=== PATIENT | female | born 1935 | race Asian ===

== ENCOUNTER 2019-11-20 14:25 | Emergency (ER) | payer BC, MEDICAID ==
[~2019-11-20] VITALS: Ht 154.9 cm; Wt 70.3 kg
[2019-11-20] MEDS ORDERED: LIP10 PO (14:37)
[2019-11-20] MEDS ORDERED: ATEN50TA PO (14:37)
[2019-11-20] MEDS ORDERED: CLOP75TA32 PO (14:37)
[2019-11-20] MEDS ORDERED: VERA240C2 PO (14:37)
[2019-11-20 14:38] VITALS: BP_SYST 166
--- NOTE | 2019-11-20 14:41 | NUR ---
Patient to ER bed 2 to gown for evaluation. Side rails up.
--- NOTE | 2019-11-20 14:42 | NUR ---
PATIENT PRESENTS TO THE ER WITH HX OF SLIP AND FALL TO DAY WHILE USING WALKER ON A GRAVEL SURFACE; PATIENT FELL AND STRUCK RIGHT OCCIPITAL AREA; NO LOC, NO OTHER TRAUMA, NO OTHER REMARKABLE S/S
--- NOTE | 2019-11-20 15:20 | NUR ---
Patient in [facility], attempting to ambulate, daughter of patient at bedside for translation.
--- NOTE | 2019-11-20 15:21 | NUR ---
Re-oriented patient to stay in [facility] for ER treatment, patient agreeable.
--- NOTE | 2019-11-20 15:49 | NUR ---
ER Dr. Gtz at bedside examining patient.
--- NOTE | 2019-11-20 17:30 | NUR ---
ER Dr. Cooper at bedside ediscussing discharge with PT & daughter of patient.
[2019-11-20 17:35] VITALS: BP_SYST 159
--- NOTE | 2019-11-20 17:35 | NUR ---
Patient given written and verbal discharge instructions and verbalizes understanding. ER MD discussed with patient the results and treatment provided. Patient in stable condition. ID arm band removed. No Rx given. Patient educated on pain management and to follow up with PMD. Pain Scale 2/10 tolerable for patient. Opportunity for questions provided and answered.
== END 2019-11-20 17:35 | disposition home or self-care (01) ==
LOC: SED 14:25
DX: S09.90XA Unspecified injury of head, initial encounter (principal); I10 Essential (primary) hypertension; Z86.79 Personal history of other diseases of the circulatory system; Z79.899 Other long term (current) drug therapy; W18.39XA Other fall on same level, initial encounter; Y93.89 Activity, other specified; Y92.480 Sidewalk as the place of occurrence of the external cause; Y99.8 Other external cause status
CPT/HCPCS: 70450-TC; 99284

== ENCOUNTER 2020-02-09 12:56 | Emergency (ER) | payer BC, MEDICAID ==
[~2020-02-09] VITALS: Ht 160 cm; Wt 74.8 kg
[~2020-02-09 12:56] MED LIST: ATEN50TA PO; CLOP75TA32 PO; LIP10 PO; VERA240C2 PO
[2020-02-09 13:01] VITALS: BP_SYST 152
[2020-02-09] MEDS ORDERED: NACL 0.9% 1,000 ML IV ONE (13:10)
[2020-02-09 13:30] LABS: BASOPHILS # (AUTO) 0.1 K/uL (0.0-0.2); BASOPHILS % (AUTO) 1.1 % (0.0-2.0); EOSINOPHILS # (AUTO) 0.1 K/uL (0.0-0.4); EOSINOPHILS % (AUTO) 1.7 % (0.0-4.0); HEMATOCRIT 39.5 % (36-48); HEMOGLOBIN 13.1 g/dL (12.0-16.0); LYMPHOCYTES # (AUTO) 1.5 K/uL (1.0-5.5); MEAN CORPUSCULAR HEMOGLOBIN 30 pg (27-31); MEAN CORPUSCULAR HGB CONC 33 % (32-36); MEAN CORPUSCULAR VOLUME 90 fL (79.0-98.0); MONOCYTES # (AUTO) 0.5 K/uL (0.0-1.0); MONOCYTES % (AUTO) 7.2 % (1.7-9.3); NEUTROPHILS # (AUTO) 4.3 K/uL (1.8-7.7); PLATELET COUNT (AUTO) 287 K/uL (130-430); RED BLOOD CELL COUNT(AUTO) 4.39 MIL/uL (4.2-6.2); RED CELL DISTRIBUTION WIDTH 14.6 % (9.0-15.0); WHITE BLOOD COUNT (AUTO) 6.3 K/uL (4.8-10.8)
[2020-02-09 13:47] LABS: PROTHROMBIN TIME 10.4 SECS (9.5-12.5)
[2020-02-09 13:52] LABS: BILIRUBIN,URINE NEGATIVE (NEGATIVE); BLOOD, URINE NEGATIVE (NEGATIVE); CLARITY/URINE CLOUDY (CLEAR); COLOR,URINE YELLOW (YELLOW); GLUCOSE,URINE NEGATIVE (NEGATIVE); KETONES,URINE NEGATIVE (NEGATIVE); LEUKOCYTE ESTERASE ,URINE 2+ (NEGATIVE); NITRITE, URINE NEGATIVE (NEGATIVE); PH,URINE 6.5 (5.0-8.0); PROTEIN URINE NEGATIVE (NEGATIVE)
[2020-02-09 13:55] LABS: BACTERIA,URINE MANY /HPF (None Seen); RBC,URINE 0-3 /HPF (0-3)
[2020-02-09] MEDS ORDERED: cefTRIAXone 1 GM IVPB PREMIX 50 ML IV ONE (14:00)
[2020-02-09 14:02] LABS: BARBITURATE, URINE NEGATIVE (NEG <=200); BENZODIAZEPINE, URINE NEGATIVE (NEG <=150); CANNABINOID, URINE NEGATIVE (NEG <=50); COCAINE, URINE NEGATIVE (NEG <=150); METHAMPHETAMINES SCREEN,URINE NEGATIVE (NEG <=500); OPIATE, URINE NEGATIVE (NEG <=100); PHENCYCLIDINE SCREEN,URINE NEGATIVE (NEG <=25); UR TRICYCLIC ANTIDEPRESSANTS NEGATIVE (NEG <=300); URINE AMPHETAMINE NEGATIVE (NEG <=500); URINE METHADONE NEGATIVE (NEG <=200); URINE OXYCODONE SCREEN NEGATIVE (NEG <=100); URINE PROPOXYPHENE SCREEN NEGATIVE (NEG <=300)
[2020-02-09 14:04] LABS: CHLORIDE 104 mmol/L (98-107); POTASSIUM 4.4 mmol/L (3.5-5.1); SODIUM SERUM 138 mmol/L (136-145)
[2020-02-09 14:05] LABS: ALANINE AMINOTRANSFERASE 25 U/L (12-78); ALBUMIN 3.2 g/dL (3.4-4.8); AMYLASE 68 U/L (0-100); ANION GAP 6 (5-15); ASPARTATE AMINOTRANSFERASE 28 U/L (10-37); CALCIUM 8.7 mg/dL (8.4-11.0); CREATININE 0.73 mg/dL (0.55-1.30); GLUCOSE 119 mg/dL (70-99); LIPASE 138 U/L (73-393); TOTAL BILIRUBIN 0.9 mg/dL (0.0-1.0); UREA NITROGEN, BLOOD 8 mg/dL (8-21)
[2020-02-09 14:06] LABS: ACETAMINOPHEN < 1 ug/mL (1-30)
[2020-02-09 14:14] LABS: ALCOHOL, BLOOD < 3 mg/dL (<10)
[2020-02-09] MEDS ORDERED: HYDR-4037 PO (14:45)
[2020-02-09 16:22] VITALS: BP_SYST 142
== END 2020-02-09 16:22 | disposition short-term general hospital (02) ==
LOC: SED 12:56
DX: F03.90 Unspecified dementia, unspecified severity, without behavioral disturbance, psychotic disturbance, mood disturbance, and anxiety (principal); R53.1 Weakness; N39.0 Urinary tract infection, site not specified; I62.01 Nontraumatic acute subdural hemorrhage; I10 Essential (primary) hypertension; Z79.899 Other long term (current) drug therapy
CPT/HCPCS: 36415; 70450; 71045; 80053; 80307; 81000; 82150; 82550; 83605; 83690; 83880; 84484; 85025; 85610; 85730; 86710; 87040; 87086; 96365; 99285; G0480; G0481; G0482; J0696; J7030

== ENCOUNTER 2020-07-05 17:19 | Inpatient (IN) | payer BC, MEDICAID, SELFPAY ==
[~2020-07-05] VITALS: Ht 162.6 cm; Wt 56.7 kg
[~2020-07-05 17:19] MED LIST changes: +HYDR-4037 PO
[2020-07-05 17:30] VITALS: BP_SYST 134
--- NOTE | 2020-07-05 17:30 | NUR ---
BIB EMT FROM HOME FOR ALOC, HX OF CVA. RESTLESS, UNABLE TO FOLLOW CAMMANDS.
[2020-07-05 18:17] LABS: BASOPHILS # (AUTO) 0.1 K/uL (0.0-0.2); BASOPHILS % (AUTO) 0.8 % (0.0-2.0); EOSINOPHILS % (AUTO) 0.1 % (0.0-4.0); HEMATOCRIT 37.4 % (36-48); HEMOGLOBIN 12.9 g/dL (12.0-16.0); LYMPHOCYTES # (AUTO) 1.2 K/uL (1.0-5.5); LYMPHOCYTES % (AUTO) 11.1 % (20.5-51.5); MEAN CORPUSCULAR HEMOGLOBIN 31 pg (27-31); MEAN CORPUSCULAR HGB CONC 34 % (32-36); MEAN CORPUSCULAR VOLUME 90 fL (79.0-98.0); MONOCYTES # (AUTO) 0.8 K/uL (0.0-1.0); MONOCYTES % (AUTO) 7.5 % (1.7-9.3); NEUTROPHILS # (AUTO) 8.7 K/uL (1.8-7.7); NEUTROPHILS % (AUTO) 80.5 % (40.0-70.0); PLATELET COUNT (AUTO) 184 K/uL (130-430); RED BLOOD CELL COUNT(AUTO) 4.19 MIL/uL (4.2-6.2); RED CELL DISTRIBUTION WIDTH 13.7 % (9.0-15.0); WHITE BLOOD COUNT (AUTO) 10.8 K/uL (4.8-10.8)
[2020-07-05] MEDS ORDERED: DIPHENHYDRAMINE INJ 50 MG/ML VIAL IVP ONE (18:30)
[2020-07-05] MEDS ORDERED: LORazepam 2 MG/ML VIAL IVP ONE (18:30)
--- NOTE | 2020-07-05 19:01 | NUR ---
RESTLESS, MEDICATED FOR CT HEAD
[2020-07-05 19:06] LABS: PROTHROMBIN TIME 10.4 SECS (9.5-12.5)
[2020-07-05 19:07] LABS: CHLORIDE 101 mmol/L (98-107); SODIUM SERUM 138 mmol/L (136-145)
[2020-07-05 19:08] LABS: ANION GAP 11 (5-15); CALCIUM 8.5 mg/dL (8.4-11.0); CREATININE 0.77 mg/dL (0.55-1.30); GLUCOSE 128 mg/dL (70-99); UREA NITROGEN, BLOOD 12 mg/dL (8-21)
[2020-07-05 19:09] LABS: ALANINE AMINOTRANSFERASE 19 U/L (12-78); ALBUMIN 3.3 g/dL (3.4-4.8); ASPARTATE AMINOTRANSFERASE 19 U/L (10-37); TOTAL BILIRUBIN 0.7 mg/dL (0.0-1.0)
[2020-07-05 19:15] LABS: POTASSIUM 2.9 mmol/L (3.5-5.1)
[2020-07-05 19:29] LABS: BILIRUBIN,URINE NEGATIVE (NEGATIVE); BLOOD, URINE 1+ (NEGATIVE); CLARITY/URINE SL CLOUDY (CLEAR); COLOR,URINE YELLOW (YELLOW); GLUCOSE,URINE NEGATIVE (NEGATIVE); KETONES,URINE NEGATIVE (NEGATIVE); LEUKOCYTE ESTERASE ,URINE 1+ (NEGATIVE); NITRITE, URINE POSITIVE (NEGATIVE); PROTEIN URINE 1+ (NEGATIVE)
[2020-07-05 19:45] LABS: BACTERIA,URINE MANY /HPF (None Seen)
[2020-07-05] MEDS ORDERED: POTASSIUM CHLORIDE 30 MEQ in NACL 0.9% 1,000 ML IV SCH (20:00)
--- NOTE | 2020-07-05 20:20 | NUR ---
REPEAT LACTATE. TOLERATED, WELL, ABX INFUSION STARTED
[2020-07-05] MEDS ORDERED: cefTRIAXone 2 GM VIAL ONE (20:26)
[2020-07-05] MEDS ORDERED: POTASSIUM CHLORIDE 20 MEQ TAB.PRT.SR PO ONE (20:30)
[2020-07-05] MEDS ORDERED: KCL 20 mEq in NS 1000 mL 1,000 ML IV ONE ×2 (20:30→22:09)
--- NOTE | 2020-07-05 22:15 | NUR ---
ADMIT ORDERS RECEIVED FOR TELE UNDER TIO
[2020-07-05] MEDS ORDERED: MECL-97 PO (22:30)
[2020-07-05] MEDS ORDERED: LEVE100S PO (22:32)
--- NOTE | 2020-07-05 22:33 | NUR ---
Medication reconciliation completed with information provided by family/list. Any prior medication reconciliation on file was reviewed and corrected.
[2020-07-05] MEDS ORDERED: KCL 20 mEq in 100 mL (PREMIX) 100 ML IV ONE (22:45)
--- NOTE | 2020-07-05 23:04 | NUR ---
NO CHANGE IN MENTATION, PT CALM, RESP UNLABORED, SKIN WARM AND DRY
--- NOTE | 2020-07-05 23:17 | NUR ---
Patient will be admitted to care of [facility]. Admitted toTELE unit. Will go to room 129. Belongings list completed. Complete and up to date summary report printed. SBAR report to be given at bedside with opportunity for questions.
[2020-07-05 23:20] VITALS: BP_SYST 136
--- NOTE | 2020-07-05 23:20 | NUR ---
ADMISSION NOTE Received patient from ER via gurney. Patient admitted with diagnosis of UROSEPSIS, ALOC, ENCEPHALOPATHY. Patient is awake, alert, oriented X 0. Patient oriented to hospital room, call light, toileting, pain management and safety-teach back done. Patient informed that CINTHIA will be HER nurse and that their room number is 124B. Personal belongings checked and Belongings List documented. Call light within reach.
--- NOTE | 2020-07-05 23:52 | NUR ---
COMMUNICATION W/ DR. TIO KINSEY HAS PAGED BACK AT THIS TIME, HE HAS GIVEN NEW ORDERS FOR PATIENT. ORDERS READ BACK, VERIFIED, AND COMMUNICATED TO PATIENT'S PRIMARY RN.
--- NOTE | 2020-07-05 23:53 | NUR ---
HIGH ALERT NOTE: HIGH ALERT MEDICATION: ATIVAN ORDERED BY DR. KINSEY OVER TELEPHONE. Called Dr. KINSEY back at , identified within the medical roster to verify physician authenticity.
[2020-07-05] MEDS: NACL 0.9% 1,000 ML IV SCH (23:55)
--- NOTE | 2020-07-05 23:55 | NUR ---
IVF PATIENT STARTED ON IVF NS @ 75 ML/HR ORDERED. IV LINE INTACT AND PATENT. PATIENT RESTING IN BED. BREATHING UNLABORED ON ROOM AIR. SAFETY PRECAUTIONS IN PLACED.
[2020-07-06] MEDS ORDERED: LORazepam 2 MG/ML VIAL IVP PRN
--- NOTE | 2020-07-06 02:21 | NUR ---
ROUNDS BREATHING UNLABORED ON ROOM AIR. 02SAT 98-99%. IVF INFUSING. BED ALARM ON.
[2020-07-06 04:51] VITALS: BP_SYST 141
--- NOTE | 2020-07-06 05:00 | NUR ---
AM CARE INCONTINENCE CARE DONE. HAD SMALL FORMED BOWEL MOVEMENT. Z GUARD APPLIED TO SACRAL AND BUTTOCKS REDNESS. VITAL SIGNS STABLE.
--- NOTE | 2020-07-06 06:31 | NUR ---
CLOSING NOTES PATIENT REMAINS LETHARGIC. NO SOB ON ROOM AIR. 02 SAT 96%. IVF INFUSING WITH IV LINE INTACT AND PATENT. PATIENT NEEDS ATTENDED. BED IN LOWEST LOCKED POSITION WITH BED ALARM ON.
[2020-07-06] MEDS ORDERED: FLU VACC QS2020-21(65UP)/PF 0.7 ML/SYRINGE I.M. PRN (07:00)
--- NOTE | 2020-07-06 07:27 | NUR ---
Nutrition Update Jairo Scale 13 noted. Pt admitted for Urosepsis, ALOC, Encephalopathy Diet: NPO BMI: 21.5 kg/m2 RD to follow per nutrition care standards.
[2020-07-06 07:44] LABS: ANION GAP 4 (5-15); CALCIUM 7.9 mg/dL (8.4-11.0); CHLORIDE 104 mmol/L (98-107); CREATININE 0.68 mg/dL (0.55-1.30); GLUCOSE 101 mg/dL (70-99); SODIUM SERUM 136 mmol/L (136-145); UREA NITROGEN, BLOOD 9 mg/dL (8-21)
[2020-07-06 07:47] LABS: BASOPHILS # (AUTO) 0.1 K/uL (0.0-0.2); BASOPHILS % (AUTO) 0.8 % (0.0-2.0); EOSINOPHILS % (AUTO) 0.2 % (0.0-4.0); HEMATOCRIT 34.8 % (36-48); HEMOGLOBIN 11.7 g/dL (12.0-16.0); LYMPHOCYTES % (AUTO) 11.6 % (20.5-51.5); MEAN CORPUSCULAR HEMOGLOBIN 30 pg (27-31); MEAN CORPUSCULAR HGB CONC 34 % (32-36); MEAN CORPUSCULAR VOLUME 90 fL (79.0-98.0); MONOCYTES # (AUTO) 0.8 K/uL (0.0-1.0); MONOCYTES % (AUTO) 9.1 % (1.7-9.3); NEUTROPHILS # (AUTO) 6.7 K/uL (1.8-7.7); NEUTROPHILS % (AUTO) 78.3 % (40.0-70.0); PLATELET COUNT (AUTO) 163 K/uL (130-430); RED BLOOD CELL COUNT(AUTO) 3.88 MIL/uL (4.2-6.2); RED CELL DISTRIBUTION WIDTH 13.9 % (9.0-15.0); WHITE BLOOD COUNT (AUTO) 8.6 K/uL (4.8-10.8)
[2020-07-06 07:55] VITALS: BP_SYST 153
[2020-07-06 07:59] LABS: ALANINE AMINOTRANSFERASE 17 U/L (12-78); ALBUMIN 2.7 g/dL (3.4-4.8); ASPARTATE AMINOTRANSFERASE 12 U/L (10-37); CHOLESTEROL 105 mg/dL (<200); HDL CHOLESTEROL 53 mg/dL (>55); LDL CHOLESTEROL 46 mg/dL (<100); THYROID STIMULATING HORMONE 0.31 uIu/mL (0.34-4.82); TOTAL BILIRUBIN 0.6 mg/dL (0.0-1.0); TRIGLYCERIDES 49 mg/dL (30-150)
--- NOTE | 2020-07-06 08:00 | NUR ---
Note Pt resting and arousable with light stimuli at this time. Pt has no SOB/resp distress or pain/discomfort noted a this time. Pt is on room air with O2 sats at 96%. Tele unit attached and intact. IV in right wrist intact and potent infusing IVF's well. No needs noted at this time. Pt is NPO - swallow eval to be done this shift. Bed in low position and bed alarm on.
[2020-07-06 09:05] LABS: POTASSIUM 2.8 mmol/L (3.5-5.1)
[2020-07-06] MEDS ORDERED: POTASSIUM CHLORIDE 40 MEQ in NS 250 ML IV ONE (09:30)
--- NOTE | 2020-07-06 10:15 | NUR ---
Note Pt resting, no needs noted at this time. Dr Bertrand was called for K=2.8, order for K-rider 40meq received at this time. Potassium IVPB was started and running well at this time. Call light within reach. Miranda catheter intact and draining all shift. Pt also non-verbal all shift.
[2020-07-06] MEDS: NACL 0.9% 1,000 ML IV SCH ×2 (12:13→21:39)
[2020-07-06 12:35] VITALS: BP_SYST 150
--- NOTE | 2020-07-06 14:00 | NUR ---
NOTE Dr Bertrand on the floor to assess pt and write orders. Jessica (speech therapist) at bedside at this time doing swallow eval. Pt resting in bed with IVF's infusing well. Call light within reach.
--- NOTE | 2020-07-06 14:18 | NUR ---
LATE ENTRY SPEECH THERAPIST MATTI WAS CONSULT FOR A SWALLOWING EVAL. CALLED MATTI DIRECTLY.
--- NOTE | 2020-07-06 14:23 | NUR ---
S.T. SWALLOW EVAL SWALLOW EVAL COMPLETED. PT PRESENTS W/ GENERALLY FUNCTIONAL OROPHARYNGEAL SWALLOW FOR PUREE AND THIN/THICK LIQUIDS W/ NO S/S OF ASPIRATION. REC: PUREE DIET. THIN LIQUIDS OK. NURSE FAMILIA NOTIFIED.
--- NOTE | 2020-07-06 14:25 | NUR ---
Note Pt's daughter Ekta [phone] called for update on pt's status. Questions/concerns were answered at this time.
[2020-07-06] MEDS ORDERED: hydrALAZINE HCL 10 MG TABLET PO PRN (14:45)
--- NOTE | 2020-07-06 15:35 | NUR ---
CONSULTATION PAGED/CALLED Reason for Consultation: [] CARDIAC EVAL Person Who was Notified: [] JATINDER Consulting Physician: [] DR SERRATO Movie Shot Cameraman Specialty: [] CARDIO Ordering Physician: [] DR KINSEY
[2020-07-06 16:52] VITALS: BP_SYST 107
--- NOTE | 2020-07-06 17:25 | NUR ---
Note Dr Edwards called for update on pt's status and labs/tests done.
--- NOTE | 2020-07-06 18:30 | NUR ---
Note Dr Edwards at pt's bedside assessing pt at 1800. Pt was assisted in sitting up in bed and fed her dinner (Pureed). Pt tolerated diet well, no choking.difficulty swallowing or coughing noted. Pt has no SOB/resp distress or pain/discomfort at this time. Tele unit attached and intact all shift. IV in right wrist intact and patent infusing IVF's well. Miranda catheter intact and draining. Pt was checked on q1' and PRN all shift for needs and care. Pt's bed in low position and bed alarm on all shift. Pt was maintained with safety and isolation precautions all shift. No needs noted at this time. Call light within reach.
[2020-07-06 18:31] LABS: ANION GAP 8 (5-15); CALCIUM 8.2 mg/dL (8.4-11.0); CHLORIDE 105 mmol/L (98-107); CREATININE 0.75 mg/dL (0.55-1.30); GLUCOSE 109 mg/dL (70-99); SODIUM SERUM 141 mmol/L (136-145); UREA NITROGEN, BLOOD 9 mg/dL (8-21)
[2020-07-06 18:40] LABS: POTASSIUM 2.9 mmol/L (3.5-5.1)
[2020-07-06 20:00] VITALS: BP_SYST 137
[2020-07-06] MEDS ORDERED: POTASSIUM CHLORIDE 50 MEQ in NS 250 ML IV ONE (20:00)
--- NOTE | 2020-07-06 20:00 | NUR ---
AWAKE, ALERT. PT FOUND PARTIALLY DISROBED, PIV DISLODGED AND INCONTINENT OF STOOL. 1 LARGE FORMED BROWN STOOL DEFECATED. STOOL RUBBED ON SIDERAILS AND IN FINGERS/NAILS. CLEANED. GOWN CHANGED. PARTIAL LINEN CHANGE DONE. CONFUSED. REORIENTED TO TIME, PLACE AND CIRCUMSTANCE. PIV #22 RESTARTED IN LEFT UPPER ARM AFTER 3 ATTEMPTS.
[2020-07-06] MEDS: cefTRIAXone 1 GM in D5W 50 ML IV SCH (21:37)
[2020-07-06] MEDS: ATENOLOL 50 MG TABLET (TENORMIN) PO SCH (21:38)
[2020-07-06] MEDS: LevETIRAcetam 500 MG/5 ML UDC ORAL LIQUID PO SCH (21:38)
--- NOTE | 2020-07-06 22:00 | NUR ---
DISROBES. NEEDS FREQUENT REMINDER AND INTERVENTIONS. FORGETFUL/CONFUSED. REPOSITIONED. FLU VACCINE GIVEN.
[2020-07-07] VITALS: BP_SYST 125
--- NOTE | 2020-07-07 | NUR ---
ASLEEP. NO DISTRESS NOTED. VSS.
--- NOTE | 2020-07-07 04:00 | NUR ---
1 MODERATE FORMED BROWN STOOL DEFECATED. DUG INTO STOOL WITH FINGERS, WIPED ONTO SIDE RAILS. CLEANED. SIDE RAILS CLEANED. FINGERNAILS CLEANED. SOBIA CARE GIVEN. SKIN CARE, CHAN CARE, BACK CARE SOBIA-CARE DONE. PARTIAL LINEN CHANGED AND SCD'S CHANGED. DOES NOT ASSIST WITH TURNING. ANGELIQUE PROC WELL.
--- NOTE | 2020-07-07 06:00 | NUR ---
SOUNDLY ASLEEP. REPOSITIONED. UO GOOD. CHAN SECUREMENT DEVICE CHANGED EARLIER. REMAINS IN GUARDED CONDITION.
[2020-07-07 07:07] LABS: BASOPHILS # (AUTO) 0.1 K/uL (0.0-0.2); EOSINOPHILS # (AUTO) 0.1 K/uL (0.0-0.4); EOSINOPHILS % (AUTO) 0.7 % (0.0-4.0); HEMATOCRIT 34.1 % (36-48); HEMOGLOBIN 11.5 g/dL (12.0-16.0); LYMPHOCYTES # (AUTO) 1.2 K/uL (1.0-5.5); LYMPHOCYTES % (AUTO) 15.4 % (20.5-51.5); MEAN CORPUSCULAR HEMOGLOBIN 30 pg (27-31); MEAN CORPUSCULAR HGB CONC 34 % (32-36); MEAN CORPUSCULAR VOLUME 90 fL (79.0-98.0); MONOCYTES # (AUTO) 0.8 K/uL (0.0-1.0); MONOCYTES % (AUTO) 10.7 % (1.7-9.3); NEUTROPHILS # (AUTO) 5.5 K/uL (1.8-7.7); NEUTROPHILS % (AUTO) 72.2 % (40.0-70.0); PLATELET COUNT (AUTO) 154 K/uL (130-430); RED BLOOD CELL COUNT(AUTO) 3.81 MIL/uL (4.2-6.2); RED CELL DISTRIBUTION WIDTH 13.9 % (9.0-15.0); WHITE BLOOD COUNT (AUTO) 7.6 K/uL (4.8-10.8)
[2020-07-07 07:17] LABS: ALANINE AMINOTRANSFERASE 18 U/L (12-78); ALBUMIN 2.7 g/dL (3.4-4.8); ANION GAP 7 (5-15); ASPARTATE AMINOTRANSFERASE 19 U/L (10-37); CALCIUM 8.1 mg/dL (8.4-11.0); CHLORIDE 110 mmol/L (98-107); GLUCOSE 90 mg/dL (70-99); POTASSIUM 3.7 mmol/L (3.5-5.1); SODIUM SERUM 144 mmol/L (136-145); TOTAL BILIRUBIN 0.5 mg/dL (0.0-1.0); UREA NITROGEN, BLOOD 13 mg/dL (8-21)
[2020-07-07 08:00] VITALS: BP_SYST 153
--- NOTE | 2020-07-07 08:00 | NUR ---
Note Pt was assisted in sitting up in bed to eat her breakfast. No SOB/resp distress or pain/discomfort noted at this time. Pt has Miranda catheter intact and draining. Tele unit attached and intact at this time. IV in JORDAN intact and patent infusing IVF's well. No needs noted at this time. Call light within reach.
[2020-07-07] MEDS: MECLIZINE HCL 25 MG TABLET (ANITVERT) PO SCH (09:27)
[2020-07-07] MEDS: ATORVASTATIN 10 MG TABLET PO SCH (09:27)
[2020-07-07] MEDS: CLOPIDOGREL BISULFATE 75 MG TABLET PO SCH (09:28)
[2020-07-07] MEDS: ATENOLOL 50 MG TABLET (TENORMIN) PO SCH ×2 (09:28→21:59)
[2020-07-07] MEDS: LevETIRAcetam 500 MG/5 ML UDC ORAL LIQUID PO SCH ×2 (09:30→21:00)
--- NOTE | 2020-07-07 10:50 | NUR ---
Note Pt pulled out her IV, tele unit and arm band. Pt was cleaned and given hygiene care. IV was inserted in left forearm and wrapped with Kerlix wrap. Order for restraints was received from Dr Bertrand. Pt's daughter Ekta was called and notified of restraints.- jaleel.
[2020-07-07 12:00] VITALS: BP_SYST 135
[2020-07-07] MEDS: NACL 0.9% 1,000 ML IV SCH (12:24)
--- NOTE | 2020-07-07 13:27 | NUR ---
Dietitian Recommendations *Continue pureed diet per CANE LOADER rec. ONS Ensure Enlive TID comes standard w/ the diet and provides additional 1050 kcal and 60gm protein daily. Please see Nutritional Assessment for details. CHIARA, RD
--- NOTE | 2020-07-07 13:50 | NUR ---
Note Pt resting in bed with mittens on bilaterally. No needs noted at this time. Call light within reach.
[2020-07-07 16:00] VITALS: BP_SYST 129
--- NOTE | 2020-07-07 18:35 | NUR ---
Note Pt was fed her dinner, appetite was good. Pt denies any SOB/resp distress or pain/discomfort noted a this time. Tele unit attached and intact. Miranda catheter intact and draining. IV in left forearm intact and patent infusing IVF's well. Pt was checked on q1' and PRN all shift for needs and care. Pt was maintained with safety and isolation precautions all shift. Pt has bilateral mittens on at this time. No needs noted at this time. Call light within reach. Pt's daughter Ekta called at this time and update was given om pt's status.
[2020-07-07 20:00] VITALS: BP_SYST 161
--- NOTE | 2020-07-07 20:00 | NUR ---
AWAKE, ALERT. CONFUSED. WAS ABLE TO TAKE OFF MITTENS. PULLED OFF EKG PATCHES. 1 SMALL FORMED BROWN STOOL DEFECATED. CLEANED. SOBIA CARE DONE. REPOSITIONED.
[2020-07-07] MEDS: cefTRIAXone 1 GM in D5W 50 ML IV SCH (21:58)
--- NOTE | 2020-07-07 22:00 | NUR ---
STILL CONFUSED. PULLS OFF EKG PATCHES IN SPITE OF MITTENS AND INSTRUCTIONS.
--- NOTE | 2020-07-08 | NUR ---
SOUNDLY ASLEEP. NO DISTRESS NOTED.
--- NOTE | 2020-07-08 02:00 | NUR ---
DOZES ON AND OFF. TURNED AND REPOSITIONED.
--- NOTE | 2020-07-08 05:00 | NUR ---
1 SMEAR OF STOOL DEFEATED. CLEANED. SOBIA-CARE DONE. CHAN CARE, BACK CARE, Z-GUARD APPLIED TO PERINEUM, SKIN CARE DONE. PARTIAL LINEN CHANGE RENDERED. DOES NOT ASSIST WITH TURNING. ANGELIQUE PROC WELL.
[2020-07-08] MEDS: NACL 0.9% 1,000 ML IV SCH (05:05)
--- NOTE | 2020-07-08 06:00 | NUR ---
SLEPT INTERMITTENTLY. UO GOOD. REMAINS ON GUARDED CONDITION.
[2020-07-08 07:25] LABS: BASOPHILS % (AUTO) 0.6 % (0.0-2.0); EOSINOPHILS # (AUTO) 0.1 K/uL (0.0-0.4); EOSINOPHILS % (AUTO) 2.3 % (0.0-4.0); HEMATOCRIT 35.9 % (36-48); HEMOGLOBIN 12.1 g/dL (12.0-16.0); LYMPHOCYTES # (AUTO) 1.2 K/uL (1.0-5.5); LYMPHOCYTES % (AUTO) 18.8 % (20.5-51.5); MEAN CORPUSCULAR HEMOGLOBIN 30 pg (27-31); MEAN CORPUSCULAR HGB CONC 34 % (32-36); MEAN CORPUSCULAR VOLUME 90 fL (79.0-98.0); MONOCYTES # (AUTO) 0.7 K/uL (0.0-1.0); MONOCYTES % (AUTO) 10.5 % (1.7-9.3); NEUTROPHILS # (AUTO) 4.4 K/uL (1.8-7.7); NEUTROPHILS % (AUTO) 67.8 % (40.0-70.0); PLATELET COUNT (AUTO) 167 K/uL (130-430); RED CELL DISTRIBUTION WIDTH 13.7 % (9.0-15.0); WHITE BLOOD COUNT (AUTO) 6.4 K/uL (4.8-10.8)
--- NOTE | 2020-07-08 08:25 | NUR ---
AM ROUNDS: PATIENT AWAKE,ALERT AND ORIENTED X2.CONTACT AIRBORNE AND DROPLET PRECAUTION RENDERED. WITH BILATERAL MITTENS ON.CALL LIGHT WITH IN REACH. BED LOCKED AT LOWEST POSITION.IV SALINE LOCK AT LEFT FOREARM INTACT. NO DISTRESS.
[2020-07-08 09:00] VITALS: BP_SYST 146
[2020-07-08] MEDS: MECLIZINE HCL 25 MG TABLET (ANITVERT) PO SCH (10:04)
[2020-07-08] MEDS: CLOPIDOGREL BISULFATE 75 MG TABLET PO SCH (10:04)
[2020-07-08] MEDS: LevETIRAcetam 500 MG/5 ML UDC ORAL LIQUID PO SCH ×2 (10:04→20:12)
[2020-07-08] MEDS: ATORVASTATIN 10 MG TABLET PO SCH (10:04)
[2020-07-08] MEDS: ATENOLOL 50 MG TABLET (TENORMIN) PO SCH ×2 (10:05→20:12)
--- NOTE | 2020-07-08 12:30 | NUR ---
lunch: fed patient and tolerated the puree diet. No problem.
[2020-07-08 13:00] VITALS: BP_SYST 143
[2020-07-08] MEDS ORDERED: FLU VACC QS2020-21 (6 mos & up) 0.5 ML/SYRINGE I.M. PRN (14:30)
--- NOTE | 2020-07-08 14:30 | NUR ---
RN ROUNDS: PATIENT ON SIDE LYING,SLEEPING. NO DISTRESS.
--- NOTE | 2020-07-08 17:05 | NUR ---
Med Group: Spoke with Jet after 5pm.Patient accepted to [facility] room #607-B.Report #[phone] [id number]. [facility] [phone]. Addendum: 07/08/20 at 195 by Carolina Larson RN added notes: On will call. Pls see above [facility] phone number.
[2020-07-08 18:15] VITALS: BP_SYST 163
--- NOTE | 2020-07-08 18:15 | NUR ---
bp: elevated bp,apresoline 10mg po given for sbp>150.
--- NOTE | 2020-07-08 18:35 | NUR ---
Called POA: Spoke to Ekta Alba,(POA) chika,direct care specialist of patient ,informed her patient had a room at [facility],On will call depending on BP prior to dc.Bp meds given and stable.Will endorsed to night nurse Carla that Ekta needs to be informed for any future snf transfer and to call for ambulance and report.
--- NOTE | 2020-07-08 19:00 | NUR ---
recheck bp: Px=450/78.
[2020-07-08 19:01] VITALS: BP_SYST 149
--- NOTE | 2020-07-08 19:25 | NUR ---
closing notes: Endorsed to night nurse Carla,patient in stable condition.
--- NOTE | 2020-07-08 19:40 | NUR ---
ROUNDS PATIENT RESTING COMFORTABLY IN BED, CONFUSED, NOT IN DISTRESS, VITALS STABLE. NO SIGNS OF ANY PAIN AND DISCOMFORT NOTED. ASSESSMENT DONE AND DOCUMENTED. SEE FLOWSHEET. NEEDS ATTENDED TO. SAFETY MEASURES IN PLACED. BED IN LOW AND LOCKED POSITION. WILL CONTINUE TO MONITOR.
[2020-07-08 20:00] VITALS: BP_SYST 130
[2020-07-08] MEDS: cefTRIAXone 1 GM in D5W 50 ML IV SCH (20:12)
--- NOTE | 2020-07-08 20:35 | NUR ---
NOTES CALLED [facility] AND GIVE REPORT TO BRENNON RN, PATIENT GOING TO ROOM 607-B.
[2020-07-08 20:45] VITALS: BP_SYST 130
--- NOTE | 2020-07-08 20:46 | NUR ---
Called [facility] dialed [phone], s/w Nikky. ETA [id number]
--- NOTE | 2020-07-08 22:25 | NUR ---
CLOSING NOTES PATIENT TRANSFERRED TO [facility] ORDERED VIA AMBULANCE WITH STABLE VITAL SIGNS . DISCHARGE PACKET DONE AND BELONGINGS CHECKED. ALL NEEDS ATTENDED TO. PATIENT'S DAUGHTER AYLEEN INFORMED OF PATIENT'S TRANSFER.
== END 2020-07-08 22:25 | disposition short-term general hospital (02) | DRG 871 ==
LOC: SED 17:19 → STU 22:51
PROVIDERS: ADMIT Internal Medicine; ATTEND Internal Medicine
DX: A41.9 Sepsis, unspecified organism (principal); S06.5X9A Traumatic subdural hemorrhage with loss of consciousness of unspecified duration, initial encounter; G93.41 Metabolic encephalopathy; N39.0 Urinary tract infection, site not specified; I11.9 Hypertensive heart disease without heart failure; M19.90 Unspecified osteoarthritis, unspecified site; F03.90 Unspecified dementia, unspecified severity, without behavioral disturbance, psychotic disturbance, mood disturbance, and anxiety; Z20.828 Contact with and (suspected) exposure to other viral communicable diseases; E78.00 Pure hypercholesterolemia, unspecified; G40.909 Epilepsy, unspecified, not intractable, without status epilepticus; E87.6 Hypokalemia; Z74.01 Bed confinement status; H91.90 Unspecified hearing loss, unspecified ear
CPT/HCPCS: 36415; 70450-TC; 71045; 80048; 80053; 80061; 81000-TC; 83605; 83880; 84443-TC; 84484; 85025; 85379; 85610-TC; 85730-TC; 87040-TC; 87086; 92610-GN; 93005; 93306; 96365; 96367; 99285; G0378; J0696; J1200; J2060; J3480; J7030; J7050; J7060; J8597; U0003

== ENCOUNTER 2024-04-17 05:12 | Inpatient (IN) | payer BC ==
[2024-04-17] VITALS (7 sets, daily range): BP systolic 123–152; PULSE 51–64; RESP 18–20; TEMP 96.5–99.2; O2SAT 96–100
[~2024-04-17] VITALS: Ht 154.9 cm; Wt 56.7 kg
[~2024-04-17 05:12] MED LIST changes: +ATOR-449 PO; +HYDR-2923 PO; -HYDR-4037 PO; +LEVE100S PO; -LIP10 PO; +MECL-103 PO
[2024-04-17] MEDS: methylPREDNISolone SOD SUCC/PF 62.5 MG/ML VIAL IVP ONE (05:30)
[2024-04-17] MEDS: IPRATROPIUM/ALBUTEROL SULFATE 3 ML AMPUL.NEB (DUONEB) INH ONE (05:31)
[2024-04-17 05:55] LABS: BLOOD GAS PH 7.509 (7.350-7.450)
[2024-04-17 05:56] LABS: ABG O2 SAT% ESTIMATE 97.2 % (94.0-100.0); ALLEN'S TEST POSITIVE (P); BLOOD GAS BASE EXCESS -1.6 mmol/L (-3.0-3.0); BLOOD GAS HCO3 20.2 mmol/L (21.0-27.0); BLOOD GAS PO2 82.5 mmHg (75.0-100.0)
[2024-04-17] MEDS: levETIRAcetam 1,000 MG in NS 90 ML IV ONE (06:14)
[2024-04-17 06:51] LABS: INFLUENZA TYPE A NEGATIVE (NEGATIVE); INFLUENZA TYPE B NEGATIVE (NEGATIVE)
[2024-04-17 06:55] LABS: BASOPHILS # (AUTO) 0.1 K/uL (0.0-0.2); BASOPHILS % (AUTO) 0.4 % (0.0-2.0); EOSINOPHILS % (AUTO) 0.1 % (0.0-4.0); HEMATOCRIT 33.7 % (36-48); LYMPHOCYTES # (AUTO) 0.7 K/uL (1.0-5.5); LYMPHOCYTES % (AUTO) 4.7 % (20.5-51.5); MEAN CORPUSCULAR HEMOGLOBIN 30 pg (27-31); MEAN CORPUSCULAR HGB CONC 33 % (32-36); MEAN CORPUSCULAR VOLUME 91 fL (79.0-98.0); MONOCYTES # (AUTO) 0.8 K/uL (0.0-1.0); MONOCYTES % (AUTO) 5.4 % (1.7-9.3); NEUTROPHILS # (AUTO) 13.2 K/uL (1.8-7.7); NEUTROPHILS % (AUTO) 89.4 % (40.0-70.0); PLATELET COUNT (AUTO) 203 K/uL (130-430); RED BLOOD CELL COUNT(AUTO) 3.72 MIL/uL (4.2-6.2); RED CELL DISTRIBUTION WIDTH 14.2 % (9.0-15.0); WHITE BLOOD COUNT (AUTO) 14.8 K/uL (4.8-10.8)
[2024-04-17 07:04] LABS: PROTHROMBIN TIME 10.7 SECS (9.5-12.5)
[2024-04-17 07:07] LABS: ALANINE AMINOTRANSFERASE 22 U/L (12-78); ANION GAP 12 (5-15); ASPARTATE AMINOTRANSFERASE 18 U/L (10-37); CALCIUM 8.2 mg/dL (8.4-11.0); CARBON DIOXIDE 24 mmol/L (23-29); CHLORIDE 106 mmol/L (98-107); CREATININE 0.83 mg/dL (0.55-1.30); GLUCOSE 141 mg/dL (74-106); POTASSIUM 3.3 mmol/L (3.5-5.1); SODIUM SERUM 142 mmol/L (136-145); TOTAL BILIRUBIN 0.4 mg/dL (0.0-1.0); TOTAL PROTEIN, SERUM 6.6 g/dL (6.4-8.3); UREA NITROGEN, BLOOD 17 mg/dL (8-21)
[2024-04-17 07:09] LABS: BILIRUBIN,DIRECT 0.2 mg/dL (0.0-0.3)
[2024-04-17 07:35] LABS: BILIRUBIN,URINE NEGATIVE (NEGATIVE); BLOOD, URINE 1+ (NEGATIVE); CLARITY/URINE SL CLOUDY (CLEAR); COLOR,URINE YELLOW (YELLOW); GLUCOSE,URINE NEGATIVE (NEGATIVE); KETONES,URINE NEGATIVE (NEGATIVE); LEUKOCYTE ESTERASE ,URINE 3+ (NEGATIVE); NITRITE, URINE POSITIVE (NEGATIVE); PH,URINE 6.5 (5.0-8.0); PROTEIN URINE TRACE (NEGATIVE); UROBILINOGEN,URINE 0.2 (0.2-1.0)
[2024-04-17 07:53] LABS: BACTERIA,URINE MANY /HPF (None Seen); WBC,URINE 80-100 /HPF (0-3)
[2024-04-17] MEDS: NACL 0.9% 1,000 ML IV ONE (08:11)
[2024-04-17] MEDS: cefTRIAXone 1 GM in D5W 50 ML IV ONE (08:11)
[2024-04-17] MEDS ORDERED: cefTRIAXone 1 GM VIAL ONE (08:13)
[2024-04-17] MEDS: D5/0.45 NS 1,000 ML IV ONE (09:52)
[2024-04-17] MEDS ORDERED: LORazepam 2 MG/ML VIAL IVP PRN (10:00)
[2024-04-17] MEDS ORDERED: MORPHINE 2 MG/ML INJ. SYRINGE IVP PRN (10:00)
[2024-04-17] MEDS ORDERED: ONDANSETRON HCL 4 MG/2 ML VIAL IVP PRN (10:00)
[2024-04-17] MEDS ORDERED: MORPHINE 4 MG INJ. 4 MG/ML VIAL IVP PRN (10:00)
[2024-04-17] MEDS: IPRATROPIUM BROM 0.5 MG/2.5 ML VIAL.NEB (ATROVENT) INH SCH (11:18)
[2024-04-17] MEDS: ALBUTEROL SULFATE 0.083% 2.5 MG/3 ML VIAL.NEB INH SCH (11:18)
[2024-04-17] MEDS: D5/0.45 NS 1,000 ML IV SCH (22:37)
[2024-04-18] VITALS (11 sets, daily range): BP systolic 128–150; PULSE 61–73; RESP 16–20; TEMP 96.5–98.4; O2SAT 98–100
[2024-04-18 06:20] LABS: BASOPHILS % (AUTO) 0.1 % (0.0-2.0); HEMATOCRIT 32.2 % (36-48); HEMOGLOBIN 10.6 g/dL (12.0-16.0); LYMPHOCYTES # (AUTO) 0.7 K/uL (1.0-5.5); LYMPHOCYTES % (AUTO) 3.9 % (20.5-51.5); MEAN CORPUSCULAR HEMOGLOBIN 30 pg (27-31); MEAN CORPUSCULAR HGB CONC 33 % (32-36); MEAN CORPUSCULAR VOLUME 90 fL (79.0-98.0); MONOCYTES # (AUTO) 0.6 K/uL (0.0-1.0); MONOCYTES % (AUTO) 3.2 % (1.7-9.3); NEUTROPHILS # (AUTO) 17.8 K/uL (1.8-7.7); NEUTROPHILS % (AUTO) 92.8 % (40.0-70.0); PLATELET COUNT (AUTO) 184 K/uL (130-430); RED BLOOD CELL COUNT(AUTO) 3.59 MIL/uL (4.2-6.2); RED CELL DISTRIBUTION WIDTH 14.1 % (9.0-15.0); WHITE BLOOD COUNT (AUTO) 19.1 K/uL (4.8-10.8)
[2024-04-18 06:50] LABS: ANION GAP 10 (5-15); CARBON DIOXIDE 25 mmol/L (23-29); CHLORIDE 108 mmol/L (98-107); CREATININE 0.74 mg/dL (0.55-1.30); GLUCOSE 143 mg/dL (74-106); POTASSIUM 3.2 mmol/L (3.5-5.1); SODIUM SERUM 143 mmol/L (136-145); UREA NITROGEN, BLOOD 11 mg/dL (8-21)
[2024-04-18] MEDS ORDERED: cefTRIAXone 1 GM IVPB PREMIX 50 ML IV SCH (09:00)
[2024-04-18] MEDS: cefTRIAXone 1 GM IVPB PREMIX 50 ML IV SCH (09:47)
[2024-04-18] MEDS ORDERED: *TPN PER PHARMACY XX PRN (10:00)
[2024-04-18] MEDS ORDERED: DEXTROSE 50% JECT 50 ML DISP.SYRIN IVP PRN (10:00)
[2024-04-18 10:43] LABS: PHOSPHORUS 2.7 mg/dL (2.7-4.5)
[2024-04-18] MEDS: PIPERACILLIN/TAZO 3.375 GM in D5W 50 ML IV SCH (15:09)
[2024-04-18] MEDS: TPN CENTRAL 0.0001 ML, SODIUM ACETATE 40 MEQ, POTASSIUM CHLORIDE 20 MEQ, K PHOS 9 MM, C... IV SCH (21:15)
[2024-04-19] VITALS (12 sets, daily range): BP systolic 138–158; PULSE 71–80; RESP 16–18; TEMP 96.3–98.7; O2SAT 93–100
[2024-04-19] MEDS: METOPROLOL TARTRATE 5 MG/5 ML VIAL IVP ONE (00:34)
[2024-04-19 06:31] LABS: BASOPHILS % (AUTO) 0.2 % (0.0-2.0); HEMATOCRIT 31.7 % (36-48); HEMOGLOBIN 10.4 g/dL (12.0-16.0); LYMPHOCYTES % (AUTO) 7.8 % (20.5-51.5); MEAN CORPUSCULAR HEMOGLOBIN 30 pg (27-31); MEAN CORPUSCULAR HGB CONC 33 % (32-36); MEAN CORPUSCULAR VOLUME 90 fL (79.0-98.0); MONOCYTES # (AUTO) 0.8 K/uL (0.0-1.0); MONOCYTES % (AUTO) 5.9 % (1.7-9.3); NEUTROPHILS # (AUTO) 11.6 K/uL (1.8-7.7); NEUTROPHILS % (AUTO) 86.1 % (40.0-70.0); PLATELET COUNT (AUTO) 192 K/uL (130-430); RED BLOOD CELL COUNT(AUTO) 3.52 MIL/uL (4.2-6.2); RED CELL DISTRIBUTION WIDTH 14.2 % (9.0-15.0); WHITE BLOOD COUNT (AUTO) 13.5 K/uL (4.8-10.8)
[2024-04-19 07:07] LABS: ALANINE AMINOTRANSFERASE 20 U/L (12-78); ALBUMIN 2.7 g/dL (3.4-4.8); ANION GAP 8 (5-15); ASPARTATE AMINOTRANSFERASE 11 U/L (10-37); CALCIUM 7.9 mg/dL (8.4-11.0); CARBON DIOXIDE 28 mmol/L (23-29); CHLORIDE 108 mmol/L (98-107); CREATININE 0.71 mg/dL (0.55-1.30); GLUCOSE 129 mg/dL (74-106); PHOSPHORUS 2.4 mg/dL (2.7-4.5); SODIUM SERUM 144 mmol/L (136-145); TOTAL BILIRUBIN 0.4 mg/dL (0.0-1.0); TOTAL PROTEIN, SERUM 6.1 g/dL (6.4-8.3); UREA NITROGEN, BLOOD 11 mg/dL (8-21)
[2024-04-19 07:12] LABS: ERYTHROCYTE SEDIMENTATION RATE 12 MM/HR (0-20)
[2024-04-19 07:25] LABS: POTASSIUM 2.7 mmol/L (3.5-5.1)
[2024-04-19] MEDS: POTASSIUM CHLORIDE 40 MEQ in NS 250 ML IV ONE (12:12)
[2024-04-19] MEDS: CALCIUM GLUCONATE 2 GM in NS 100 ML IV ONE (14:01)
[2024-04-19] MEDS: K PHOS 15 MM in NS 250 ML IV ONE (14:11)
[2024-04-19] MEDS: TPN CENTRAL IV SCH (20:24)
[2024-04-19] MEDS: [UNRECOGNIZED DRUG - OTHER] IV SCH (20:24)
[2024-04-19] MEDS: K PHOS IV SCH (20:24)
[2024-04-19] MEDS: SODIUM ACETATE IV SCH (20:24)
[2024-04-20] VITALS (13 sets, daily range): BP systolic 103–160; PULSE 76–95; RESP 15–20; TEMP 97.3–97.9; O2SAT 93–99
[2024-04-20 07:46] LABS: ALANINE AMINOTRANSFERASE 16 U/L (12-78); ALBUMIN 2.8 g/dL (3.4-4.8); ANION GAP 6 (5-15); ASPARTATE AMINOTRANSFERASE 15 U/L (10-37); CARBON DIOXIDE 28 mmol/L (23-29); CHLORIDE 105 mmol/L (98-107); CREATININE 0.69 mg/dL (0.55-1.30); GLUCOSE 110 mg/dL (74-106); PHOSPHORUS 2.6 mg/dL (2.7-4.5); POTASSIUM 3.6 mmol/L (3.5-5.1); SODIUM SERUM 139 mmol/L (136-145); TOTAL BILIRUBIN 0.8 mg/dL (0.0-1.0); TOTAL PROTEIN, SERUM 6.4 g/dL (6.4-8.3); UREA NITROGEN, BLOOD 12 mg/dL (8-21)
[2024-04-20 08:37] LABS: BASOPHILS # (AUTO) 0.2 K/uL (0.0-0.2); BASOPHILS % (AUTO) 1.6 % (0.0-2.0); EOSINOPHILS % (AUTO) 0.2 % (0.0-4.0); HEMATOCRIT 32.2 % (36-48); HEMOGLOBIN 11.1 g/dL (12.0-16.0); LYMPHOCYTES # (AUTO) 0.4 K/uL (1.0-5.5); LYMPHOCYTES % (AUTO) 3.2 % (20.5-51.5); MEAN CORPUSCULAR HEMOGLOBIN 31 pg (27-31); MEAN CORPUSCULAR HGB CONC 34 % (32-36); MEAN CORPUSCULAR VOLUME 90 fL (79.0-98.0); MONOCYTES # (AUTO) 0.5 K/uL (0.0-1.0); MONOCYTES % (AUTO) 3.7 % (1.7-9.3); NEUTROPHILS # (AUTO) 12.4 K/uL (1.8-7.7); NEUTROPHILS % (AUTO) 91.3 % (40.0-70.0); PLATELET COUNT (AUTO) 198 K/uL (130-430); RED CELL DISTRIBUTION WIDTH 14.4 % (9.0-15.0); WHITE BLOOD COUNT (AUTO) 13.6 K/uL (4.8-10.8)
[2024-04-20 08:49] LABS: ERYTHROCYTE SEDIMENTATION RATE 19 MM/HR (0-20)
[2024-04-20] MEDS: INSULIN REGULAR, HUMAN 100 UNITS/ML, 3 ML VIAL (humuLIN R) SUBCUT PRN (11:38)
[2024-04-20] MEDS: CALCIUM GLUC 2 GM/100ML-NACL 100 ML IV ONE (12:14)
[2024-04-20] MEDS: NA PHOS 15 MM in NS 250 ML IV ONE (14:15)
[2024-04-20] MEDS: FAT EMULSIONS 250 ML IV SCH (21:21)
[2024-04-20] MEDS: [UNRECOGNIZED DRUG - OTHER] IV SCH (21:24)
[2024-04-20] MEDS: SODIUM ACETATE IV SCH (21:24)
[2024-04-20] MEDS: TPN CENTRAL IV SCH (21:24)
[2024-04-20] MEDS: K PHOS IV SCH (21:24)
[2024-04-21] VITALS (13 sets, daily range): BP systolic 131–166; PULSE 70–87; RESP 16–17; TEMP 96.1–97.9; O2SAT 97–100
[2024-04-21] MEDS: METOPROLOL TARTRATE 5 MG/5 ML VIAL IVP PRN (01:29)
[2024-04-21 07:25] LABS: ALANINE AMINOTRANSFERASE 18 U/L (12-78); ALBUMIN 2.5 g/dL (3.4-4.8); ANION GAP 9 (5-15); ASPARTATE AMINOTRANSFERASE 16 U/L (10-37); CARBON DIOXIDE 27 mmol/L (23-29); CHLORIDE 104 mmol/L (98-107); CREATININE 0.67 mg/dL (0.55-1.30); GLUCOSE 135 mg/dL (74-106); PHOSPHORUS 3.4 mg/dL (2.7-4.5); SODIUM SERUM 140 mmol/L (136-145); TOTAL BILIRUBIN 0.6 mg/dL (0.0-1.0); TOTAL PROTEIN, SERUM 6.1 g/dL (6.4-8.3); UREA NITROGEN, BLOOD 15 mg/dL (8-21)
[2024-04-21 07:31] LABS: BASOPHILS # (AUTO) 0.1 K/uL (0.0-0.2); BASOPHILS % (AUTO) 0.4 % (0.0-2.0); EOSINOPHILS % (AUTO) 0.3 % (0.0-4.0); HEMATOCRIT 30.5 % (36-48); HEMOGLOBIN 10.7 g/dL (12.0-16.0); LYMPHOCYTES % (AUTO) 6.9 % (20.5-51.5); MEAN CORPUSCULAR HEMOGLOBIN 31 pg (27-31); MEAN CORPUSCULAR HGB CONC 35 % (32-36); MONOCYTES # (AUTO) 1.1 K/uL (0.0-1.0); NEUTROPHILS % (AUTO) 84.4 % (40.0-70.0); PLATELET COUNT (AUTO) 176 K/uL (130-430); RED BLOOD CELL COUNT(AUTO) 3.45 MIL/uL (4.2-6.2); RED CELL DISTRIBUTION WIDTH 14.2 % (9.0-15.0); WHITE BLOOD COUNT (AUTO) 14.3 K/uL (4.8-10.8)
[2024-04-21 07:33] LABS: POTASSIUM 2.6 mmol/L (3.5-5.1)
[2024-04-21 07:36] LABS: MEAN CORPUSCULAR VOLUME 88 fL (79.0-98.0)
[2024-04-21 07:38] LABS: ERYTHROCYTE SEDIMENTATION RATE 18 MM/HR (0-20)
[2024-04-21] MEDS: KCL 40 mEq in 100 mL (PREMIX) 100 ML IV ONE (09:54)
[2024-04-21] MEDS: CALCIUM GLUC 2 GM/100ML-NACL 100 ML IV ONE (12:38)
[2024-04-21] MEDS: hydrALAZINE HCL 20 MG/ML VIAL IVP PRN (14:22)
[2024-04-21] MEDS: FLUCONAZOLE 200 mg/ NS 100 ML IV SCH ×2 (18:00→20:54)
[2024-04-21] MEDS ORDERED: FLUCONAZOLE 200 mg/ NS 100 ML IV ONE (20:07)
[2024-04-21] MEDS: cefTRIAXone 1 GM VIAL ONE (20:16)
[2024-04-21] MEDS: K PHOS IV SCH (20:53)
[2024-04-21] MEDS: TPN CENTRAL IV SCH (20:53)
[2024-04-21] MEDS: [UNRECOGNIZED DRUG - OTHER] IV SCH (20:53)
[2024-04-21] MEDS: POTASSIUM CHLORIDE IV SCH (20:53)
[2024-04-21] MEDS: SODIUM ACETATE IV SCH (20:53)
[2024-04-22] VITALS (12 sets, daily range): BP systolic 134–156; PULSE 64–96; RESP 14–20; TEMP 97.7–98.7; O2SAT 95–100
[2024-04-22 06:29] LABS: BASOPHILS % (AUTO) 0.5 % (0.0-2.0); EOSINOPHILS # (AUTO) 0.1 K/uL (0.0-0.4); EOSINOPHILS % (AUTO) 1.3 % (0.0-4.0); HEMATOCRIT 31.6 % (36-48); HEMOGLOBIN 10.5 g/dL (12.0-16.0); LYMPHOCYTES # (AUTO) 1.1 K/uL (1.0-5.5); LYMPHOCYTES % (AUTO) 11.1 % (20.5-51.5); MEAN CORPUSCULAR HEMOGLOBIN 30 pg (27-31); MEAN CORPUSCULAR HGB CONC 33 % (32-36); MEAN CORPUSCULAR VOLUME 89 fL (79.0-98.0); MONOCYTES # (AUTO) 1.1 K/uL (0.0-1.0); NEUTROPHILS # (AUTO) 7.7 K/uL (1.8-7.7); NEUTROPHILS % (AUTO) 76.1 % (40.0-70.0); PLATELET COUNT (AUTO) 195 K/uL (130-430); RED BLOOD CELL COUNT(AUTO) 3.54 MIL/uL (4.2-6.2); RED CELL DISTRIBUTION WIDTH 14.1 % (9.0-15.0); WHITE BLOOD COUNT (AUTO) 10.1 K/uL (4.8-10.8)
[2024-04-22 06:34] LABS: ERYTHROCYTE SEDIMENTATION RATE 21 MM/HR (0-20)
[2024-04-22 06:36] LABS: INR 1.1 (0.8-1.2); PROTHROMBIN TIME 11.2 SECS (9.5-12.5)
[2024-04-22 06:53] LABS: ALANINE AMINOTRANSFERASE 18 U/L (12-78); ALBUMIN 2.4 g/dL (3.4-4.8); ANION GAP 5 (5-15); ASPARTATE AMINOTRANSFERASE 15 U/L (10-37); CALCIUM 8.3 mg/dL (8.4-11.0); CARBON DIOXIDE 30 mmol/L (23-29); CHLORIDE 105 mmol/L (98-107); CREATININE 0.61 mg/dL (0.55-1.30); GLUCOSE 123 mg/dL (74-106); PHOSPHORUS 3.1 mg/dL (2.7-4.5); POTASSIUM 3.4 mmol/L (3.5-5.1); SODIUM SERUM 140 mmol/L (136-145); TOTAL BILIRUBIN 0.3 mg/dL (0.0-1.0); TOTAL PROTEIN, SERUM 6.1 g/dL (6.4-8.3); UREA NITROGEN, BLOOD 16 mg/dL (8-21)
[2024-04-22] MEDS: fentaNYL CITRATE/PF 100 MCG/2 ML AMP ONE (07:17)
[2024-04-22] MEDS: MIDAZOLAM HCL 5 MG/5 ML VIAL ONE (07:18)
[2024-04-22] MEDS: SIMETHICONE 40 MG/0.6 ML ML ONE (07:18)
[2024-04-22] MEDS: SODIUM ACETATE IV SCH (21:51)
[2024-04-22] MEDS: [UNRECOGNIZED DRUG - OTHER] IV SCH (21:51)
[2024-04-22] MEDS: POTASSIUM CHLORIDE IV SCH (21:51)
[2024-04-22] MEDS: TPN CENTRAL IV SCH (21:51)
[2024-04-22] MEDS: K PHOS IV SCH (21:51)
[2024-04-23] VITALS (11 sets, daily range): BP systolic 106–157; PULSE 72–82; RESP 15–20; TEMP 97.1–97.8; O2SAT 95–100
[2024-04-23 06:27] LABS: BASOPHILS % (AUTO) 0.5 % (0.0-2.0); EOSINOPHILS # (AUTO) 0.2 K/uL (0.0-0.4); EOSINOPHILS % (AUTO) 2.7 % (0.0-4.0); HEMOGLOBIN 10.7 g/dL (12.0-16.0); LYMPHOCYTES # (AUTO) 1.2 K/uL (1.0-5.5); LYMPHOCYTES % (AUTO) 12.9 % (20.5-51.5); MEAN CORPUSCULAR HEMOGLOBIN 30 pg (27-31); MEAN CORPUSCULAR HGB CONC 33 % (32-36); MEAN CORPUSCULAR VOLUME 90 fL (79.0-98.0); MONOCYTES % (AUTO) 11.6 % (1.7-9.3); NEUTROPHILS # (AUTO) 6.5 K/uL (1.8-7.7); NEUTROPHILS % (AUTO) 72.3 % (40.0-70.0); PLATELET COUNT (AUTO) 217 K/uL (130-430); RED BLOOD CELL COUNT(AUTO) 3.55 MIL/uL (4.2-6.2); RED CELL DISTRIBUTION WIDTH 14.3 % (9.0-15.0)
[2024-04-23 06:31] LABS: ERYTHROCYTE SEDIMENTATION RATE 30 MM/HR (0-20)
[2024-04-23 06:49] LABS: ALANINE AMINOTRANSFERASE 20 U/L (12-78); ALBUMIN 2.6 g/dL (3.4-4.8); ANION GAP 7 (5-15); ASPARTATE AMINOTRANSFERASE 14 U/L (10-37); CALCIUM 8.4 mg/dL (8.4-11.0); CARBON DIOXIDE 29 mmol/L (23-29); CHLORIDE 104 mmol/L (98-107); CREATININE 0.59 mg/dL (0.55-1.30); GLUCOSE 125 mg/dL (74-106); PHOSPHORUS 3.3 mg/dL (2.7-4.5); POTASSIUM 3.7 mmol/L (3.5-5.1); SODIUM SERUM 140 mmol/L (136-145); TOTAL BILIRUBIN 0.3 mg/dL (0.0-1.0); TOTAL PROTEIN, SERUM 6.4 g/dL (6.4-8.3); UREA NITROGEN, BLOOD 15 mg/dL (8-21)
[2024-04-23] MEDS: POTASSIUM ACETATE IV SCH (20:08)
[2024-04-23] MEDS: K PHOS IV SCH (20:08)
[2024-04-23] MEDS: TPN CENTRAL IV SCH (20:08)
[2024-04-23] MEDS: [UNRECOGNIZED DRUG - OTHER] IV SCH (20:08)
[2024-04-23] MEDS: SODIUM CHLORIDE IV SCH (20:08)
[2024-04-24] VITALS (12 sets, daily range): BP systolic 119–153; PULSE 70–88; RESP 16–20; TEMP 97–98.3; O2SAT 94–100
[2024-04-24 06:40] LABS: BASOPHILS # (AUTO) 0.1 K/uL (0.0-0.2); BASOPHILS % (AUTO) 1.1 % (0.0-2.0); EOSINOPHILS # (AUTO) 0.3 K/uL (0.0-0.4); EOSINOPHILS % (AUTO) 4.3 % (0.0-4.0); HEMATOCRIT 30.7 % (36-48); HEMOGLOBIN 10.4 g/dL (12.0-16.0); LYMPHOCYTES # (AUTO) 1.3 K/uL (1.0-5.5); LYMPHOCYTES % (AUTO) 15.9 % (20.5-51.5); MEAN CORPUSCULAR HEMOGLOBIN 30 pg (27-31); MEAN CORPUSCULAR HGB CONC 34 % (32-36); MEAN CORPUSCULAR VOLUME 90 fL (79.0-98.0); MONOCYTES # (AUTO) 1.1 K/uL (0.0-1.0); MONOCYTES % (AUTO) 13.4 % (1.7-9.3); NEUTROPHILS # (AUTO) 5.3 K/uL (1.8-7.7); NEUTROPHILS % (AUTO) 65.3 % (40.0-70.0); PLATELET COUNT (AUTO) 221 K/uL (130-430); RED BLOOD CELL COUNT(AUTO) 3.42 MIL/uL (4.2-6.2); RED CELL DISTRIBUTION WIDTH 14.5 % (9.0-15.0); WHITE BLOOD COUNT (AUTO) 8.1 K/uL (4.8-10.8)
[2024-04-24 07:18] LABS: ERYTHROCYTE SEDIMENTATION RATE 28 MM/HR (0-20)
[2024-04-24 08:11] LABS: ALANINE AMINOTRANSFERASE 18 U/L (12-78); ALBUMIN 2.5 g/dL (3.4-4.8); ANION GAP 4 (5-15); ASPARTATE AMINOTRANSFERASE 15 U/L (10-37); CALCIUM 8.4 mg/dL (8.4-11.0); CARBON DIOXIDE 28 mmol/L (23-29); CHLORIDE 104 mmol/L (98-107); CREATININE 0.57 mg/dL (0.55-1.30); GLUCOSE 112 mg/dL (74-106); PHOSPHORUS 3.5 mg/dL (2.7-4.5); POTASSIUM 3.7 mmol/L (3.5-5.1); SODIUM SERUM 136 mmol/L (136-145); TOTAL BILIRUBIN 0.3 mg/dL (0.0-1.0); TOTAL PROTEIN, SERUM 6.3 g/dL (6.4-8.3); UREA NITROGEN, BLOOD 16 mg/dL (8-21)
[2024-04-24] MEDS ORDERED: LEVO-62 PO (09:51)
[2024-04-24] MEDS ORDERED: DIF100 PO (09:53)
[2024-04-25] VITALS (9 sets, daily range): BP systolic 145–156; PULSE 82–86; RESP 15–16; TEMP 97.1–97.6; O2SAT 95–100
[2024-04-25 06:11] LABS: BASOPHILS # (AUTO) 0.1 K/uL (0.0-0.2); BASOPHILS % (AUTO) 1.3 % (0.0-2.0); EOSINOPHILS # (AUTO) 0.3 K/uL (0.0-0.4); EOSINOPHILS % (AUTO) 3.7 % (0.0-4.0); HEMATOCRIT 30.2 % (36-48); HEMOGLOBIN 10.1 g/dL (12.0-16.0); LYMPHOCYTES # (AUTO) 1.1 K/uL (1.0-5.5); LYMPHOCYTES % (AUTO) 15.2 % (20.5-51.5); MEAN CORPUSCULAR HEMOGLOBIN 30 pg (27-31); MEAN CORPUSCULAR HGB CONC 33 % (32-36); MEAN CORPUSCULAR VOLUME 90 fL (79.0-98.0); MONOCYTES % (AUTO) 13.2 % (1.7-9.3); NEUTROPHILS # (AUTO) 4.9 K/uL (1.8-7.7); NEUTROPHILS % (AUTO) 66.6 % (40.0-70.0); PLATELET COUNT (AUTO) 246 K/uL (130-430); RED BLOOD CELL COUNT(AUTO) 3.35 MIL/uL (4.2-6.2); RED CELL DISTRIBUTION WIDTH 14.4 % (9.0-15.0); WHITE BLOOD COUNT (AUTO) 7.4 K/uL (4.8-10.8)
[2024-04-25 06:17] LABS: ERYTHROCYTE SEDIMENTATION RATE 33 MM/HR (0-20)
[2024-04-25 06:54] LABS: ALANINE AMINOTRANSFERASE 23 U/L (12-78); ALBUMIN 2.5 g/dL (3.4-4.8); ANION GAP 7 (5-15); ASPARTATE AMINOTRANSFERASE 17 U/L (10-37); CALCIUM 8.2 mg/dL (8.4-11.0); CARBON DIOXIDE 28 mmol/L (23-29); CHLORIDE 104 mmol/L (98-107); CREATININE 0.65 mg/dL (0.55-1.30); GLUCOSE 141 mg/dL (74-106); PHOSPHORUS 3.9 mg/dL (2.7-4.5); POTASSIUM 3.9 mmol/L (3.5-5.1); SODIUM SERUM 139 mmol/L (136-145); TOTAL BILIRUBIN 0.3 mg/dL (0.0-1.0); TOTAL PROTEIN, SERUM 6.4 g/dL (6.4-8.3); UREA NITROGEN, BLOOD 16 mg/dL (8-21)
[2024-04-25] MEDS ORDERED: K PHOS IV SCH (21:00)
[2024-04-25] MEDS ORDERED: TPN CENTRAL IV SCH (21:00)
[2024-04-25] MEDS ORDERED: POTASSIUM ACETATE IV SCH (21:00)
[2024-04-25] MEDS ORDERED: [UNRECOGNIZED DRUG - OTHER] IV SCH (21:00)
[2024-04-25] MEDS ORDERED: SODIUM CHLORIDE IV SCH (21:00)
== END 2024-04-25 21:40 | disposition home health service (06) | DRG 871 ==
LOC: SED 05:12 → STU 09:34 → SMU 04-23 12:59
PROVIDERS: ADMIT Preventive Medicine Preventive Medicine/Occupational Environmental Medicine; ATTEND Preventive Medicine Preventive Medicine/Occupational Environmental Medicine
PROC: 02HV33Z Insertion of Infusion Device into Superior Vena Cava, Percutaneous Approach (ICD-10-PCS; principal; 2024-04-17)
PROC: B548ZZA Ultrasonography of Superior Vena Cava, Guidance (ICD-10-PCS; 2024-04-17)
DX: A41.9 Sepsis, unspecified organism (principal); E43 Unspecified severe protein-calorie malnutrition; J69.0 Pneumonitis due to inhalation of food and vomit; J96.01 Acute respiratory failure with hypoxia; J18.9 Pneumonia, unspecified organism; N39.0 Urinary tract infection, site not specified; I69.354 Hemiplegia and hemiparesis following cerebral infarction affecting left non-dominant side; Z20.822 Contact with and (suspected) exposure to COVID-19; F03.90 Unspecified dementia, unspecified severity, without behavioral disturbance, psychotic disturbance, mood disturbance, and anxiety; I10 Essential (primary) hypertension; E78.5 Hyperlipidemia, unspecified; J06.9 Acute upper respiratory infection, unspecified; D64.9 Anemia, unspecified; E87.6 Hypokalemia; R73.9 Hyperglycemia, unspecified; E83.51 Hypocalcemia; E88.09 Other disorders of plasma-protein metabolism, not elsewhere classified; I48.0 Paroxysmal atrial fibrillation; E83.39 Other disorders of phosphorus metabolism; R13.10 Dysphagia, unspecified; B96.20 Unspecified Escherichia coli [E. coli] as the cause of diseases classified elsewhere; B96.4 Proteus (mirabilis) (morganii) as the cause of diseases classified elsewhere; R62.7 Adult failure to thrive; Z79.01 Long term (current) use of anticoagulants; Z90.49 Acquired absence of other specified parts of digestive tract; Z68.23 Body mass index [BMI] 23.0-23.9, adult
CPT/HCPCS: 36415; 36600; 70450-TC; 71045; 80048; 80053; 80076; 81000; 81001; 81015; 82803; 82948; 83605; 83735; 84100; 84478; 84484; 85025; 85610; 85651; 85730; 87040; 87070; 87086; 87186; 87205; 92610-GN; 93005; 94070; 94640; 94664; 94760; 96365; 96375; 99285; G0378; J0360; J0610; J0696; J1450; J1815; J1953; J2250; J2543; J2930; J3010; J3475; J3480; J3490; J7050; J7060; J7131